=== PATIENT | female | born 1995 | race Caucasian/White ===

== ENCOUNTER 2020-12-10 07:00 | Inpatient (IN) | payer OTHER ==
[2020-12-10] MEDS: DEXTROSE 5%-LACTATED RINGERS 1,000 ML IV SCH (08:30)
[2020-12-10] MEDS ORDERED: OXYTOCIN 30 UNITS in 0.9% NS 30 UNIT/500 ML INFUS.BAG IVPB ONE (08:37)
[2020-12-10] MEDS ORDERED: PROMETHAZINE HCL 25 MG/1 ML VIAL IVPB ONE (08:48)
[2020-12-10] MEDS ORDERED: BUTORPHANOL TARTRATE 2 MG/ML VIAL IVPB ONE (08:48)
[2020-12-10] MEDS ORDERED: OXYTOCIN 30 UNITS in 0.9% NS 30 UNIT/500 ML INFUS.BAG IVPB SCH (09:00)
[2020-12-10] MEDS ORDERED: AMPICILLIN - 2 GM in SODIUM CHLORIDE 100 ML IVPB ONE (09:00)
[2020-12-10] MEDS ORDERED: AMPICILLIN SODIUM 2 GM VIAL ONE (09:29)
[2020-12-10 09:38] VITALS: BMI 26.0
[2020-12-10 09:44] LABS: BASO % 0.3 % (0-2.0); EOS % 0.5 % (0-4.5); HEMATOCRIT 32.9 % (32.4-45.2); HEMOGLOBIN 10.9 GM/dL (10.7-15.3); MCH 27.9 pg (25.7-33.7); MCHC 33.3 g/dl (32.0-36.0); MEAN CELL VOLUME 83.7 fl (80-96); MEAN PLT VOLUME 9.4 fl (7.5-11.1); MONO % 10.5 % (3.8-10.2); NEUT % 71.7 % (42.8-82.8); PLATELET COUNT 186 10^3/uL (134-434); RBC 3.93 M/mm3 (3.60-5.2); RDW 14.7 % (11.6-15.6)
[2020-12-10 09:52] LABS: INR 0.85 (0.83-1.09); PROTHROMBIN TIME (PATIENT) 10.3 SEC (9.7-13.0)
[2020-12-10 10:03] LABS: BLOOD UREA NITROGEN 12.8 mg/dL (7-18); CALCIUM 8.1 mg/dL (8.5-10.1)
[2020-12-10 10:06] LABS: CREATININE 0.6 mg/dL (0.55-1.3)
[2020-12-10 11:26] LABS: HIV INTERPRETATION NEGATIVE (NEGATIVE)
[2020-12-10] MEDS ORDERED: AMPICILLIN SODIUM 1 GM VIAL ONE (12:56)
[2020-12-10] MEDS ORDERED: BUPIVACAINE HCL/PF 0.25% (2.5MG/ML) 10 ML VIAL ONE (13:02)
[2020-12-10] MEDS: AMPICILLIN - 1 GM in SODIUM CHLORIDE 100 ML IVPB SCH ×3 (13:07→20:56)
[2020-12-10] MEDS ORDERED: FENTANYL/BUPIVACAINE/NS/PF - PCEA - 50 ML DISP.SYRIN EP ONE (13:18)
[2020-12-10] MEDS ORDERED: NALOXONE HCL 0.4 MG/ML VIAL IVPUSH PRN (13:20)
[2020-12-10] MEDS ORDERED: FENTANYL/BUPIVACAINE/NS/PF - PCEA - 50 ML DISP.SYRIN EP SCH (13:30)
[2020-12-10] MEDS ORDERED: OXYTOCIN 20 UNITS in 0.9% NS 20 UNIT/1,000 ML INFUS.BAG IV ONE (15:38)
[2020-12-10] MEDS ORDERED: BENZOCAINE 28 GM HEMORRHOIDAL OINTMENT TP PRN (16:04)
[2020-12-10] MEDS ORDERED: METHYLERGONOVINE MALEATE 0.2 MG/1 ML AMP IM PRN (16:04)
[2020-12-10] MEDS ORDERED: BISACODYL 10 MG SUPP.RECT RC PRN (16:04)
[2020-12-10] MEDS ORDERED: WITCH HAZEL 50% (TUCKS) 40 PAD/JAR PAD TP PRN (16:04)
[2020-12-10] MEDS ORDERED: BENZOCAINE 20% 57 GM BOTTLE TP PRN (16:04)
[2020-12-10] MEDS ORDERED: oxyCODONE HCL 5 MG TABLET PO PRN (16:04)
[2020-12-10] MEDS ORDERED: OXYTOCIN 20 UNITS in 0.9% NS 20 UNIT/1,000 ML INFUS.BAG IV SCH (16:15)
[2020-12-10] MEDS: ACETAMINOPHEN 325 MG TABLET (FP) PO PRN (20:16)
[2020-12-10] MEDS: IBUPROFEN 600 MG TABLET (FP) PO PRN (20:16)
[2020-12-11] MEDS: IBUPROFEN 600 MG TABLET (FP) PO PRN ×2 (00:53→21:04)
[2020-12-11] MEDS: ACETAMINOPHEN 325 MG TABLET (FP) PO PRN ×2 (00:54→21:04)
[2020-12-11] MEDS: DEXTROSE 5%-LACTATED RINGERS 1,000 ML IV SCH (09:51)
[2020-12-11] MEDS: PRENATAL VITAMINS W/ FOLIC ACID TABLET (FP) PO SCH (10:06)
[2020-12-11 11:28] LABS: BASO % 0.2 % (0-2.0); EOS % 0.3 % (0-4.5); HEMATOCRIT 31.6 % (32.4-45.2); HEMOGLOBIN 10.5 GM/dL (10.7-15.3); LYMPH % 11.3 % (8-40); MCH 28.4 pg (25.7-33.7); MCHC 33.4 g/dl (32.0-36.0); MEAN CELL VOLUME 85.1 fl (80-96); MEAN PLT VOLUME 9.4 fl (7.5-11.1); MONO % 6.8 % (3.8-10.2); NEUT % 81.4 % (42.8-82.8); PLATELET COUNT 175 10^3/uL (134-434); RBC 3.72 M/mm3 (3.60-5.2); WHITE BLOOD COUNT 12.8 K/mm3 (4.0-10.0)
[2020-12-11] MEDS ORDERED: SENNOSIDES/DOCUSATE COMBO (SENNA PLUS) TABLET (UD) PO PRN (22:00)
[2020-12-12] MEDS: ACETAMINOPHEN 325 MG TABLET (FP) PO PRN (09:21)
[2020-12-12] MEDS: PRENATAL VITAMINS W/ FOLIC ACID TABLET (FP) PO SCH (09:21)
[2020-12-12 11:01] VITALS: BP 121/80; PULSE 90; TEMP 98
== END 2020-12-12 11:50 | disposition home or self-care (01) | DRG 560 ==
LOC: JLDR 07:00 → J3W 20:00
PROVIDERS: ADMIT Obstetrics & Gynecology; ATTEND Obstetrics & Gynecology
PROC: 10E0XZZ Delivery of Products of Conception, External Approach (ICD-10-PCS; principal; 2020-12-10)
PROC: 3E033VJ Introduction of Other Hormone into Peripheral Vein, Percutaneous Approach (ICD-10-PCS; 2020-12-10)
PROC: 10907ZC Drainage of Amniotic Fluid, Therapeutic from Products of Conception, Via Natural or Artificial Opening (ICD-10-PCS; 2020-12-10)
DX: O80 Encounter for full-term uncomplicated delivery (principal); Z3A.39 39 weeks gestation of pregnancy; Z37.0 Single live birth
CPT/HCPCS: 36415; 59409; 80048; 85025; 85610; 85730; 86780; 86850; 86870; 86900; 86901; 86902; 87389